=== PATIENT | male | born 1955 | race Caucasian/White ===

== ENCOUNTER 2023-10-07 14:03 | Emergency (ER) | payer BC, SELFPAY ==
[2023-10-07 14:17] VITALS: BP 164/106
--- NOTE | 2023-10-07 15:38 | ED.SKININJ ---
HPI-Injury
General
Chief Complaint: Skin Problem
Source: patient
Exam Limitations: none
Time Seen by Provider: 10/07/23 15:37
Nursing documentation reviewed up to this point in time: agreed with
History of Present Illness-Injury
Initial Injury comments:
68-year-old male with history of IDDM, hypothyroid presents with painful lump mid chest wall. States he's had a cyst in this area that has been injected by his Dermatologis, improves and now is back again but more painful and red. Denies
fever/chills. Feels well otherwise.
Pt being treated for Lyme disease with Doxycycline, on his third day.
Past History
Past History
ED Past Medical History: IDDM and Hypothyroidism
ED Past Surgical History: Orthopedic
Social History
Tobacco: Non-smoker
Alcohol: Occasional
Personal:
Living: with family
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
Review of Systems
Review of Systems
Allergies reviewed?: Yes
All Other Systems: ROS reviewed and negative except as documented in HPI and ROS
Constitutional: Denies fever or chills
Skin: Reports other (Mid chest wall infection)
Phy Exam
Physical Exam
Physical Exam:
GENERAL: No acute distress. A&Ox3.
CONSTITUTIONAL: Afebrile.
EYES: clear, conjunctivae normal
ENMT: moist mucus membranes, Pharynx nl
RESPIRATORY: Regular respirations, nonlabored, lungs clear.
CARDIOVASCULAR: Regular rate and rhythm, no murmurs, no rubs.
GI: Soft, nontender, normal BS
MUSCULOSKELETAL: Moves with ease. Well perfused.
SKIN: Warm, dry, pink. Mid chest wall lower sternum with 3 cm tender, erythematous, indurated, area. Surrounding skin is normal.
PSYCH: Normal mood and affect. Well kept, interactive and appropriate
NEUROLOGIC: Awake, alert and oriented. No focal neurological deficits
Course
Orders/Labs/Results
Orders:
Orders
10/07/23 16:36
Wound Culture [Wound/Abscess/Other Culture] Urgent
[facility] Source: Abscess
Specimen Description:
Date Specimen was Collected: 10/07/23
Time Specimen was Collected: 16:27
Vital Signs
Initial and Last Documented VS:
Initial Vital Signs
Temp Pulse BP Pulse Ox
98.2 F 75 164/106 96
10/07/23 14:17 10/07/23 14:17 10/07/23 14:17 10/07/23 14:17
Last Documented Vital Signs
Temp Pulse BP Pulse Ox
98.2 F 75 164/89 96
10/07/23 14:17 10/07/23 14:17 10/07/23 16:15 10/07/23 14:17
Procedures
Incision/Drainage/Joint Aspiration
Lower sternal area of chest:
Anethesia: 1% Lidocaine with Epi
Preparation: cleaned with alcohol wipe
Type of procedure: incise and drain
Nature of site: cyst (infected cyst)
Description of abscess: less than 3cm
How much fluid was obtained?: small amount
Fluid description: foul smelling
Treatment: packed with gauze and bandaid applied
MDM/Problems Addressed
Differential Diagnosis Includes:
infected cyst, abscess, cellulits
MDM/Problems Addressed:
68-year-old male with history of IDDM, hypothyroid presents with painful lump mid chest wall. States he's had a cyst in this area that has been injected by his Dermatologis, improves and now is back again but more painful and red. Denies
fever/chills. Feels well otherwise.
Pt being treated for Lyme disease with Doxycycline, on his third day.
Afebrile NAD
Area drained, pt tolerated procedure well, culture sent, already on Doxycycline for Lymes
No surrounding cellulitis
*Critical Care Note
Total Time (30-74mins, 75-104mins- exclusive of procedures): Not Applicable
ED Attending Note
-
Portions of this chart may have been created with voice recognition software.� Occasional wrong word or��sound alike� substitutions may have occurred due to the inherent limitations of voice recognition software.
Discharge Plan
Departure
Patient Disposition: Home (Routine Discharge)
Date of Disposition: 10/07/23
Time of Disposition: 16:09
Patient with high blood pressure during this ER visit?: Yes
Condition: Good
Discharge Problem:
Abscess
Instructions: BLOOD PRESSURE, Skin Abscess
Referrals:
Your, Drawer In Hand [Other] - Call in 1-3 days for appt
Tanvir Rodriguez MD [Active] - As needed
Activity Restrictions/Additional Instructions:
As we discussed, you are on the correct antibiotic doxycycline for this type of infection.
If the packing has not fallen out by day 3 (Thursday), you may remove it.
Allow the warm shower water to run over the area.
Since this is recurring in same area, the whole sac may need to be excised by your test tech or the general surgeon
Interventions
Interventions:
*Risk Screen - Suicide Last Done: 10/07/23 14:19
*General Assessment Last Done: 10/07/23 15:39
*Neglect/Abuse Screening Last Done: 10/07/23 14:19
*ED COVID-19 Vaccine History Last Done: 10/07/23 14:19
*Nursing Disposition Last Done: 10/07/23 16:38
Discharge Date and Time
Discharge Date/Time: 10/07/23 16:38
Print Language: VINCENTIAN
[2023-10-07 16:15] VITALS: BP 164/89
== END 2023-10-07 16:38 | disposition home or self-care (01) ==
LOC: EMR 14:03
PROVIDERS: EMERGENCY PHYSICIAN Emergency Medicine; FAMILY PHYSICIAN Internal Medicine Pulmonary Disease
DX: L02.213 Cutaneous abscess of chest wall (principal); E11.9 Type 2 diabetes mellitus without complications; E03.9 Hypothyroidism, unspecified
CPT/HCPCS: 99283; 10060; 87070; 87147; 87205